=== PATIENT | male | born 1975 | race African-American/Black ===

== ENCOUNTER 2018-09-28 22:23 | Emergency (ER) | payer SELFPAY ==
[2018-09-28] MEDS ORDERED: Sodium Chloride 0.9% 1,000 ML ONE (22:48)
[2018-09-28] MEDS ORDERED: Metoclopramide HCl 10 MG/2 ML VIAL ONE (22:51)
[2018-09-28] MEDS ORDERED: Metoclopramide HCl 10 MG TAB ONE (22:51)
[2018-09-28] MEDS ORDERED: cloNIDine 0.1 MG TAB ONE (22:51)
[2018-09-28] MEDS ORDERED: diphenhydrAMINE 50 MG/ML VIAL ONE (22:51)
== END 2018-09-28 23:55 | disposition home or self-care (01) ==
LOC: NAV ERS 22:23
DX: R51 Headache (principal); I10 Essential (primary) hypertension; F17.210 Nicotine dependence, cigarettes, uncomplicated
CPT/HCPCS: 96361; 96374; 96375; J1200; J2765; J7050; J8597